=== PATIENT | male | born 1970 | race Caucasian/White ===

== ENCOUNTER 2017-04-12 16:42 | Emergency (ER) | payer OTHER ==
[~2017-04-12] VITALS: Ht 170.2 cm; Wt 77.1 kg
[2017-04-12] MEDS ORDERED: ADDERALL XR 3030 MG PO (16:47)
[2017-04-12] MEDS ORDERED: ZESTORETIC 20-1 EAC2 PO (16:47)
[2017-04-12] MEDS ORDERED: SIMVASTATIN20 MG PO (16:47)
[2017-04-12] MEDS ORDERED: AMITRIPTYLINE H25 M2 PO (16:48)
[2017-04-12 18:00] VITALS: BP 145/104
== END 2017-04-12 18:18 | disposition home or self-care (01) ==
LOC: ER 16:42
DX: S61.012A Laceration without foreign body of left thumb without damage to nail, initial encounter (principal); F10.99 Alcohol use, unspecified with unspecified alcohol-induced disorder; W22.8XXA Striking against or struck by other objects, initial encounter; Y93.89 Activity, other specified; Y92.89 Other specified places as the place of occurrence of the external cause; Y99.8 Other external cause status

== ENCOUNTER 2020-05-29 12:54 | Emergency (ER) | payer OTHER ==
[~2020-05-29] VITALS: Ht 170.2 cm; Wt 80.7 kg
[~2020-05-29 12:54] MED LIST: ADDERALL XR 3030 MG PO; AMITRIPTYLINE H25 M2 PO; SIMVASTATIN20 MG PO; ZESTORETIC 20-1 EAC2 PO
[2020-05-29 13:00] VITALS: BP 177/101
[2020-05-29] MEDS ORDERED: ONDANSETRON HCL4 M2 PO (13:42)
[2020-05-29] MEDS ORDERED: PROMETH-CODEIN 65 ML PO (13:42)
== END 2020-05-29 13:59 | disposition home or self-care (01) ==
LOC: ER 12:54
DX: U07.1 COVID-19 (principal); R05 Cough; I10 Essential (primary) hypertension; E78.5 Hyperlipidemia, unspecified; Z79.899 Other long term (current) drug therapy

== ENCOUNTER → 2021-04-23 | Outpatient (CLI) | payer OTHER ==
[~2021-04-23] MED LIST changes: +ONDANSETRON HCL4 M2 PO; +PROMETH-CODEIN 65 ML PO
[2021-04-23 09:02] LABS: ANION GAP 8 mmol/L (7-16); BUN 15 mg/dL (7-18); CALCIUM 9.5 mg/dL (8.5-10.1); CHLORIDE 101 mmol/L (98-107); CHOLESTEROL 196 mg/dL (<200); CO2 32 mmol/L (21-32); GLUCOSE 157 mg/dL (74-106); HDL CHOLESTEROL 44 mg/dL (>40); LDL CHOLESTEROL 114 mg/dL (<100); POTASSIUM 3.7 mmol/L (3.5-5.1); SGOT 84 U/L (15-37); SGPT 139 U/L (30-65); SODIUM 141 mmol/L (136-145); TC:HDL 4.5 Ratio (Not establshd); TOTAL BILIRUBIN 0.4 mg/dL (0.2-1.0); TOTAL PROTEIN 7.7 g/dL (6.4-8.2); TRIGLYCERIDE 192 mg/dL (<150); VLDL 38 mg/dL (<40)
[2021-04-23 23:06] LABS: GLYCOHEMOGLOBIN (HGB A1C) 8.6 % (4.8-5.6)
== END ==
LOC: LAB 07:46
PROVIDERS: ATTEND Family Medicine
DX: I10 Essential (primary) hypertension (principal); R73.02 Impaired glucose tolerance (oral)